=== PATIENT | female | born 1980 | race Caucasian/White ===

== ENCOUNTER 2018-03-29 10:44 | Day surgery (SDC) | payer BC ==
[~2018-03-29] VITALS: Ht 165.1 cm; Wt 86.2 kg
[2018-03-29 10:48] VITALS: BP_SYST 152
--- NOTE | 2018-03-29 10:55 | NUR ---
Patient to ER bed 07 to gown for evaluation. Side rails up. Report given to Lynn.
--- NOTE | 2018-03-29 10:55 | NUR ---
ER at bedside examining patient.
[2018-03-29] MEDS ORDERED: NACL 0.9% 1,000 ML IV ONE (11:15)
--- NOTE | 2018-03-29 11:15 | NUR ---
patient AOx4 arriving from home with at bedside. patient has c/o vaginal bleeding x 4 days. patient stated it has gotten worse over the last few days. patient is 13 weeks with her second . no other complaint or injury at this time.
[2018-03-29 11:45] LABS: BILIRUBIN,URINE NEGATIVE (NEGATIVE); BLOOD, URINE 3+ (NEGATIVE); CLARITY/URINE CLEAR (CLEAR); COLOR,URINE YELLOW (YELLOW); GLUCOSE,URINE NEGATIVE (NEGATIVE); KETONES,URINE NEGATIVE (NEGATIVE); LEUKOCYTE ESTERASE ,URINE NEGATIVE (NEGATIVE); NITRITE, URINE NEGATIVE (NEGATIVE); PROTEIN URINE NEGATIVE (NEGATIVE); UROBILINOGEN,URINE 0.2 (0.2-1.0)
[2018-03-29 11:49] LABS: BACTERIA,URINE FEW /HPF (None Seen); RBC,URINE 20-50 /HPF (0-3); WBC,URINE 0-3 /HPF (0-3)
[2018-03-29 11:50] LABS: MUCUS,URINE None Seen /LPF (None Seen)
[2018-03-29 11:53] LABS: CALCIUM 8.8 mg/dL (8.4-11.0); CREATININE 0.51 mg/dL (0.55-1.30); POTASSIUM 3.6 mmol/L (3.5-5.1)
[2018-03-29 11:55] LABS: PROTHROMBIN TIME 9.9 SECS (9.5-12.5)
[2018-03-29 11:59] LABS: ALBUMIN 3.1 g/dL (3.4-4.8); TOTAL BILIRUBIN 0.4 mg/dL (0.0-1.0)
--- NOTE | 2018-03-29 11:59 | NUR ---
pt A&Ox4, VS WNL, respirations even and unlabored.
--- NOTE | 2018-03-29 12:15 | NUR ---
Ultrasound at bedside at this time.
[2018-03-29 12:28] LABS: EOSINOPHILS # (AUTO) 0.1 K/uL (0.0-0.4); MEAN CORPUSCULAR HEMOGLOBIN 30 pg (27-31)
[2018-03-29 12:36] LABS: RED BLOOD CELL COUNT(AUTO) 4.32 MIL/uL (4.2-6.2); WHITE BLOOD COUNT (AUTO) 6.5 K/uL (4.8-10.8)
[2018-03-29 12:37] LABS: HEMATOCRIT 38.4 % (36-48); HEMOGLOBIN 12.7 g/dL (12.0-16.0); MEAN CORPUSCULAR HGB CONC 33 % (32-36); MEAN CORPUSCULAR VOLUME 89 fL (79.0-98.0); RED CELL DISTRIBUTION WIDTH 11.7 % (9.0-15.0)
[2018-03-29 12:38] LABS: LYMPHOCYTES % (AUTO) 24.4 % (20.5-51.5); MONOCYTES % (AUTO) 6.7 % (1.7-9.3); NEUTROPHILS % (AUTO) 67.8 % (40.0-70.0); PLATELET COUNT (AUTO) 301 K/uL (130-430)
[2018-03-29 12:39] LABS: BASOPHILS % (AUTO) 0.2 % (0.0-2.0); EOSINOPHILS % (AUTO) 0.9 % (0.0-4.0); LYMPHOCYTES # (AUTO) 1.6 K/uL (1.0-5.5); MONOCYTES # (AUTO) 0.4 K/uL (0.0-1.0); NEUTROPHILS # (AUTO) 4.4 K/uL (1.8-7.7)
--- NOTE | 2018-03-29 13:00 | NUR ---
ultrasound provider requests a transvaginal ultrasound. patient has saturated gown, one large blue absorbent pad. changed gown,underwear and blue absorbent pad.
--- NOTE | 2018-03-29 13:30 | NUR ---
patient has placed a towl between legs due to bleeding. notified .
--- NOTE | 2018-03-29 14:26 | NUR ---
Loving of care recieved, pt A&Ox4, VS WNL
--- NOTE | 2018-03-29 15:30 | NUR ---
Spoke to Rose in OR. Patient scheduled for D & C at 1600. Pre op checklist completed and placed in chart. Awaiting Surgeon and Anesthesiologist to sign consent.
--- NOTE | 2018-03-29 15:36 | NUR ---
Dr. Hdez at bedside informing patient of plan of care.
--- NOTE | 2018-03-29 16:00 | NUR ---
Dr Resendiz is at bedside examining patient.
--- NOTE | 2018-03-29 16:10 | NUR ---
Patient will be admitted to care of Dr Resendiz. Admitted to Surgery unit. Will go to room surgery. Belongings list completed. Summary report printed. Report will be given at bedside.
[2018-03-29] MEDS ORDERED: LR 1,000 ML IV SCH ×2 (16:17→17:16)
[2018-03-29] MEDS ORDERED: MEPERIDINE HCL/PF 50 MG/ML AMP IM PRN (16:30)
[2018-03-29] MEDS ORDERED: ONDANSETRON HCL 4 MG/2 ML VIAL IVP PRN (16:30)
[2018-03-29] MEDS ORDERED: OXYCODONE/ACETAMINOPHEN 5-325 TABLET PO PRN (16:30)
[2018-03-29] MEDS ORDERED: IBUPROFEN 800 MG TABLET PO PRN (16:30)
[2018-03-29] MEDS ORDERED: PROPOFOL 200MG/ 20ML VIAL (DIPRIVAN) IV ONE (17:25)
[2018-03-29] MEDS ORDERED: ONDANSETRON HCL 4 MG/2 ML VIAL ONE (17:25)
[2018-03-29] MEDS ORDERED: METHYLERGONOVINE MALEATE 0.2 MG/ML AMP ONE (17:25)
[2018-03-29] MEDS ORDERED: DEXAMETHASONE SOD PHOSPHATE 4 MG/ML VIAL ONE (17:25)
[2018-03-29] MEDS ORDERED: NS IRRIG SOLN 1000 ML IR ONE (17:25)
[2018-03-29] MEDS ORDERED: LR 1,000 ML IV.SOLN IV ONE (17:25)
[2018-03-29] MEDS ORDERED: ROCURONIUM BROMIDE 10 MG/ML (ZEMURON) ONE (17:25)
[2018-03-29] MEDS ORDERED: fentaNYL CITRATE/PF 100 MCG/2 ML AMP ONE (17:25)
[2018-03-29] MEDS ORDERED: CEFAZOLIN 2 GM IVPB PREMIX 50 ML IV ONE (17:25)
[2018-03-29] MEDS ORDERED: SEVOFLURANE 15 MIN GAS INH ONE (17:25)
[2018-03-29] MEDS ORDERED: OXYTOCIN/0.9 % SODIUM CHLORIDE 20 UNITS/1,000 ML BAG IV ONE (17:25)
[2018-03-29] MEDS ORDERED: KETOROLAC TROMETHAMINE 30 MG VIAL ONE (17:25)
[2018-03-29] MEDS ORDERED: MIDAZOLAM HCL 5 MG/ML VIAL (VERSED) IV ONE (17:25)
[2018-03-29] MEDS ORDERED: HYDROmorphone 2 MG/ML VIAL IVP PRN ×2 (17:30)
[2018-03-29] MEDS ORDERED: HYDROmorphone 1 MG INJ. 1 MG/ML AMPUL IVP PRN (17:30)
[2018-03-29] MEDS ORDERED: MEPERIDINE HCL/PF 25 MG/ML DISP.SYRIN IVP PRN (17:30)
--- NOTE | 2018-03-29 18:05 | NUR ---
Admit Note Patient admitted from the PACU. S/p d and C by Dr. Resendiz. Patient will be admitted for obs only. Vital signs are within normal limits.IV is on the LAC 20g running LR@100. Instructed patient on how to use the call light. She verbalized understanding. Bed is locked and in the lowest position. Will continue to monitor.
[2018-03-29 18:11] VITALS: BP_SYST 107
--- NOTE | 2018-03-29 19:00 | NUR ---
Closing Note Patient is resting in bed vital signs have been stable. Care endorsed to Camila VAN shift nurse.
--- NOTE | 2018-03-29 19:15 | NUR ---
Opening notes Received report. Patient resting comfortably in bed. No signs of distress noted. Breathing is even and unlabored. Vital signs are stable. IV is patent and intact. Call light is with the patient. Safety precautions in place.
--- NOTE | 2018-03-29 21:25 | NUR ---
Patient discharged Patient vital signs stable. Does not complain of any pain. Patient is able to tolerate food and liquids. No nausea and vomiting noted. Patient able to ambulate and void without any complications. IV removed. Patient discharged with patient belongings and discharge packet via wheelchair accompanied by RACKMAN and .
== END 2018-03-29 21:25 | disposition home or self-care (01) ==
LOC: SED 10:44 → SDS 16:05
PROVIDERS: ATTEND Specialist
DX: O03.4 Incomplete spontaneous abortion without complication (principal); Z98.890 Other specified postprocedural states; E66.01 Morbid (severe) obesity due to excess calories; R25.2 Cramp and spasm
CPT/HCPCS: 36415; 59812; 76801; 76817; 80053; 81000; 84702; 85025; 85610; 86901; 88305; J0690; J1100; J1885; J2210; J2250; J2405; J2590; J2704; J3010; J7120; 96360; 99285